=== PATIENT | female | born 1970 | race Caucasian/White ===

== ENCOUNTER 2017-02-20 14:57 | Observation (INO) | payer OTHER ==
[2017-02-20] VITALS (7 sets, daily range): BP systolic 112–120; BP diastolic 62–83; PULSE 71–94; RESP 18–20; TEMP 97.8–98.2; O2SAT 98–100
[~2017-02-20] VITALS: Ht 147.3 cm; Wt 71.4 kg
[~2017-02-20 14:57] MED LIST: HYDR-3533 PO; PROM25SU8 PO; ZOVI800T13 PO
[2017-02-20] MEDS ORDERED: SODIUM CHLOR 0.9% 1000 ML INJ 1,000 ML IV ONE (15:16)
[2017-02-20 15:31] LABS: AUTOMATED NEUTROPHIL # 6.1 TH/MM3 (1.8-7.7); BASOPHIL # 0.4 TH/MM3 (0-0.2); BASOPHIL % 4.4 % (0.0-2.0); EOSINOPHIL % 0.4 % (0.0-4.0); HEMATOCRIT 31.7 % (35.0-46.0); HEMO FLAGS AUTO DIFF; LYMPH % 14.4 % (9.0-44.0); LYMPHOCYTE # 1.2 TH/MM3 (1.0-4.8); MEAN CELL VOLUME 69.8 FL (80.0-100.0); MEAN CORPUSCULAR HEMOGLOBIN 21.7 PG (27.0-34.0); MEAN CORPUSCULAR HGB CONC 31.1 % (32.0-36.0); MONO % 5.1 % (0.0-8.0); NEUT % 75.7 % (16.0-70.0); PLATELET COUNT 289 TH/MM3 (150-450); RED BLOOD COUNT 4.54 MIL/MM3 (4.00-5.30); RED CELL DISTRIBUTION WIDTH 16.7 % (11.6-17.2); WHITE BLOOD COUNT 8.1 TH/MM3 (4.0-11.0)
--- NOTE | 2017-02-20 15:36 | RADRPT ---
EXAM DATE/TIME: 02/20/2017 15:22 [facility] COMPARISON: No previous studies available for comparison. INDICATIONS : Stroke alert. Left hand numbness, right eye vision changes. RADIATION DOSE: 60.68 CTDIvol (mGy) This report was called by Dr. Khalil to do Shaffer at 1532 hrs. MEDICAL HISTORY : Non-responsive. SURGICAL HISTORY : Non-responsive. ENCOUNTER: Initial ACUITY: 1 day PAIN SCALE: Non-responsive LOCATION: Bilateral head TECHNIQUE: Multiple contiguous axial images were obtained of the head. Using automated exposure control and adj ustment of the mA and/or kV according to patient size, radiation dose was kept as low as reasonably a chievable to obtain optimal diagnostic quality images. DICOM format image data is available electro nically for review and comparison. FINDINGS: CEREBRUM: The ventricles are normal for age. No evidence of midline shift, mass lesion, hemorrhage or acute in farction. No extra-axial fluid collections are seen. POSTERIOR FOSSA: The cerebellum and brainstem are intact. The 4th ventricle is midline. The cerebellopontine angle i s unremarkable. EXTRACRANIAL: The visualized portion of the orbits is intact. SKULL: The calvaria is intact. No evidence of skull fracture. CONCLUSION: Negative noncontrast CT. Devang Shaffer MD on February 20, 2017 at 15:31 Board Certified Radiologist. This report was verified electronically.
--- NOTE | 2017-02-20 15:36 | PD ---
HPI Chief Complaint: Stroke Alert Time Seen by Provider: 15:05 Travel History International Travel<30 days: No Contact w/Intl Traveler<30days: No Traveled to known affect area: No History of Present Illness HPI The patient is a 46-year-old female who presents to the emergency department via private vehicle for left-sided numbness and tingling of the arm that began 1 hour prior to arrival. The patient states her first symptom was a bright light that she saw on the right eye, she then developed a mild left- sided headache which has resolved. She then developed numbness and tingling of the face and the left and right side as well as the roof of the mouth and the tongue. The patient then developed some left-sided arm pain with numbness and tingling. She also complained of mild chest discomfort on the left side which has resolved. The patient states she had no numbness or tingling of the lower extremities. She also noted dysarthria and according to the daughter when the patient called the daughter, the daughter states the patient's voice was slurred. The daughter does state that the patient's speech has returned to normal upon arrival. The patient denies any history of hypertension, hyperlipidemia, coronary artery disease, diabetes, tobacco use, TIA, CVA, DVT, or pulmonary embolism. She does have a family history of stroke. The daughter states the patient has been under a great deal of stress recently. Symptoms are moderate, onset was one hour prior to arrival, and his speech has returned to normal on its own, without any intervention. 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) Substance Use: No Allergies-Medications (Allergen,Severity, Reaction): Coded Allergies: No Known Allergies (Verified , 07/09/15) Reported Meds & Prescriptions Reported Meds & Active Scripts Active Lortab 5 mg/325 mg (Hydrocodone/Acetaminophen 5 mg/325 mg) 1 Tab 1 Tab PO Q4H PRN Phenergan (Promethazine HCl) 25 Mg Tab 25 Mg PO Q6H PRN FOR NAUSEA/VOMITING Zovirax (Acyclovir) 800 Mg Tab 800 Mg PO 5 TIMES A DAY Review of Systems Except as stated in HPI: all other systems reviewed are Neg General / Constitutional: No: Fever Eyes: Positive: Visual changes HENT: Positive: Headaches Cardiovascular: Positive: Chest Pain or Discomfort Respiratory: No: Shortness of Breath Gastrointestinal: No: Nausea, Vomiting, Abdominal Pain Musculoskeletal: No: Weakness Neurologic: Positive: Headache, Slurred Speech, Paresthesia, Sensory Disturbance, No: Change in Mentation Physical Exam Narrative GENERAL: Awake, alert, pleasant 46-year-old female who appears her stated age and is in no acute respiratory distress. SKIN: Focused skin assessment warm/dry. HEAD: Atraumatic. Normocephalic. EYES: Pupils equal and round. Pupils are 3 mm bilateral and reactive. EOMs are intact. The patient is able to see fingers correctly out of the left eye to be a distance of 2 feet, however, the right is a was see 1 finger without difficulty, but confuses to fingers and 3 fingers. ENT: No nasal bleeding or discharge. Mucous membranes pink and moist. NECK: Trachea midline. No JVD. CARDIOVASCULAR: Regular rate and rhythm. No murmur appreciated. RESPIRATORY: No accessory muscle use. Clear to auscultation. Breath sounds equal bilaterally. GASTROINTESTINAL: Abdomen soft, non-tender, nondistended. MUSCULOSKELETAL: No obvious deformities. No clubbing. No cyanosis. No edema. NEUROLOGICAL: Awake and alert. No obvious cranial nerve deficits. Motor grossly within normal limits. Normal speech. Alert and oriented 4. No dysarthria noted. Extraocular muscles are intact. Visual christensen appear symmetric, but patient did have decreased visual acuity of the right eye. Drift of the left arm noted against gravity, however, does not fall to the bed. Finger to nose is normal. No drift of the lower extremities or right upper extremity. [id number] is normal. Decreased sensation on the left arm and left aspect of the face. PSYCHIATRIC: Slightly anxious. Insight and judgment appear normal. Data Data Last Documented VS Vital Signs Date Time Temp Pulse Resp B/P (MAP) Pulse Ox O2 Delivery O2 Flow Rate FiO2 02/20/17 15:15 100 Room Air 02/20/17 15:15 98.2 94 18 120/66 (84) Orders Orders Cath For Specimen (02/20/17 15:16) Neuro Checks Q2HX12,Q4H (02/20/17 15:16) Nursing Bedside Swallow Assess .ONCE (02/20/17 15:16) Activity Bed Rest (02/20/17 15:16) Diet Npo (02/20/17 Dinner) Prothrombin Time / Inr (Pt) (02/20/17 15:16) Act Partial Throm Time (Ptt) (02/20/17 15:16) Complete Blood Count With Diff (02/20/17 15:16) Basic Metabolic Panel (Bmp) (02/20/17 15:16) Fibrinogen (02/20/17 15:16) Creatine Kinase (Cpk) (02/20/17 15:16) Troponin I (02/20/17 15:16) Ua Includes Microscopic (02/20/17 15:16) Drug Screen, Random Urine (02/20/17 15:16) Type And Screen (02/20/17 15:16) Ct Brain W/O Iv Contrast(Rout) (02/20/17 ) Electrocardiogram (02/20/17 ) Beta Hcg (Quant/Titer) (02/20/17 15:16) Consult Neurology (02/20/17 15:16) Sodium Chlor 0.9% 1000 Ml Inj (Ns 1000 M (02/20/17 15:16) Blood Glucose (02/20/17 15:16) Ecg Monitoring (02/20/17 15:16) Iv Access Insert/Monitor (02/20/17 15:16) NPO (02/20/17 15:16) Oximetry (02/20/17 15:16) Oxygen Administration (02/20/17 15:16) Resp Oxygen Royal C [place] 1-4 L (02/20/17 15:16) Mri Brain W/O Contrast (02/20/17 ) Mra Brain W/O Contrast (Cow) (02/20/17 ) Aspirin (Aspirin) (02/20/17 15:45) (Hub Use Only)Inp Phy Cons/Ref (02/20/17 ) Labs Laboratory Tests Test 02/20/17 15:20 White Blood Count 8.1 TH/MM3 Red Blood Count 4.54 MIL/MM3 Hemoglobin 9.8 GM/DL Hematocrit 31.7 % Mean Corpuscular Volume 69.8 FL Mean Corpuscular Hemoglobin 21.7 PG Mean Corpuscular Hemoglobin Concent 31.1 % Red Cell Distribution Width 16.7 % Platelet Count 289 TH/MM3 Mean Platelet Volume 9.1 FL Neutrophils (%) (Auto) 75.7 % Lymphocytes (%) (Auto) 14.4 % Monocytes (%) (Auto) 5.1 % Eosinophils (%) (Auto) 0.4 % Basophils (%) (Auto) 4.4 % Neutrophils # (Auto) 6.1 TH/MM3 Lymphocytes # (Auto) 1.2 TH/MM3 Monocytes # (Auto) 0.4 TH/MM3 Eosinophils # (Auto) 0.0 TH/MM3 Basophils # (Auto) 0.4 TH/MM3 CBC Comment AUTO DIFF Differential Comment AUTO DIFF CONFIRMED Prothrombin Time 10.7 SEC Prothromb Time International Ratio 1.0 RATIO Activated Partial Thromboplast Time 27.1 SEC Blood Urea Nitrogen 11 MG/DL Creatinine 0.73 MG/DL Random Glucose 84 MG/DL Calcium Level 8.5 MG/DL Sodium Level 138 MEQ/L Potassium Level 3.5 MEQ/L Chloride Level 107 MEQ/L Carbon Dioxide Level 19.1 MEQ/L Anion Gap 12 MEQ/L Estimat Glomerular Filtration Rate 86 ML/MIN Total Creatine Kinase 90 U/L Troponin I LESS THAN 0.02 NG/ML Human Chorionic Gonadotropin, Quant LESS THAN 1 MIU/ML MDM Medical Screen Exam Complete: Yes Emergency Medical Condition: Yes Medical Record Reviewed: Yes EKG Prior to Arrival: No Differential Diagnosis Differential diagnosis includes complicated migraine, TIA, CVA, intracranial hemorrhage, hypercoagulopathy. Narrative Course IV was established, labs are drawn and sent, and the patient was placed on cardiac telemetry monitoring and continuous pulse oximetry monitoring. EKG was ordered and interpreted. Stat CT the brain was performed and stroke alert was called. The patient's NIH SS is a 3, her dysarthria has resolved according to the daughter, the patient's differential also complicated migraine as she did have photophobia or bright light in the right eye with a left-sided headache which resolved prior to symptoms versus a TIA/CVA. However, I would not administer TPA as patient's symptoms appeared to be improving in regards to the dysarthria and some of the numbness on the face. I had a discussion with the on -call neurologist, Dr. Streeter, who recommends stat MRI. I had a discussion with the radiologist, Dr. Gonsalez, and after discussion was agreed we would cancel CTA perform MRA as the patient is going to have an MRI. CT the brain was negative, therefore, the patient was administered aspirin. Stroke Alert NIHSS NIH Stroke Scale Result: 3 NIHSS Time Completed: 15:25 Procedures Interpretation(s) EKG revealed normal sinus rhythm with a rate 80. RSR prime in V1. Inverted T- wave in lead 3. Last Impressions Head CT 02/20/17 0000 Signed Impressions: Service Date/Time: Monday, February 20, 2017 15:22 - CONCLUSION: Negative noncontrast CT. Devang Shaffer MD Laboratory Tests Test 02/20/17 15:20 White Blood Count 8.1 TH/MM3 Red Blood Count 4.54 MIL/MM3 Hemoglobin 9.8 GM/DL Hematocrit 31.7 % Mean Corpuscular Volume 69.8 FL Mean Corpuscular Hemoglobin 21.7 PG Mean Corpuscular Hemoglobin Concent 31.1 % Red Cell Distribution Width 16.7 % Platelet Count 289 TH/MM3 Mean Platelet Volume 9.1 FL Neutrophils (%) (Auto) 75.7 % Lymphocytes (%) (Auto) 14.4 % Monocytes (%) (Auto) 5.1 % Eosinophils (%) (Auto) 0.4 % Basophils (%) (Auto) 4.4 % Neutrophils # (Auto) 6.1 TH/MM3 Lymphocytes # (Auto) 1.2 TH/MM3 Monocytes # (Auto) 0.4 TH/MM3 Eosinophils # (Auto) 0.0 TH/MM3 Basophils # (Auto) 0.4 TH/MM3 CBC Comment AUTO DIFF Differential Comment AUTO DIFF CONFIRMED Prothrombin Time 10.7 SEC Prothromb Time International Ratio 1.0 RATIO Activated Partial Thromboplast Time 27.1 SEC Blood Urea Nitrogen 11 MG/DL Creatinine 0.73 MG/DL Random Glucose 84 MG/DL Calcium Level 8.5 MG/DL Sodium Level 138 MEQ/L Potassium Level 3.5 MEQ/L Chloride Level 107 MEQ/L Carbon Dioxide Level 19.1 MEQ/L Anion Gap 12 MEQ/L Estimat Glomerular Filtration Rate 86 ML/MIN Total Creatine Kinase 90 U/L Troponin I LESS THAN 0.02 NG/ML Human Chorionic Gonadotropin, Quant LESS THAN 1 MIU/ML Physician Communication Physician Communication I discussed the patient with Dr. Thompson who agrees with admission. Diagnosis Diagnosis: Primary Impression: Paresthesias Admitting Physician Requests: Observation Condition: Stable Alexy Khalil MD Feb 20, 2017 15:36
[2017-02-20 15:38] LABS: CHLORIDE 107 MEQ/L (98-107); POTASSIUM 3.5 MEQ/L (3.5-5.1); SODIUM (NA) 138 MEQ/L (136-145)
[2017-02-20 15:42] LABS: ANION GAP 12 MEQ/L (5-15); BICARBONATE 19.1 MEQ/L (21.0-32.0); BLOOD UREA NITROGEN 11 MG/DL (7-18)
[2017-02-20 15:44] LABS: APTT (PATIENT) 27.1 SEC (24.3-30.1); PROTHROMBIN TIME - PATIENT 10.7 SEC (9.8-11.6)
[2017-02-20 15:45] LABS: GLOMERULAR FILTRATION RATE 86 ML/MIN (>89)
[2017-02-20] MEDS ORDERED: ASPIRIN 325 MG TAB PO ONE (15:45)
[2017-02-20 15:49] LABS: CREATINE KINASE 90 U/L (26-192)
[2017-02-20 15:50] LABS: BETA HCG QUANT LESS THAN 1 MIU/ML (0-5)
[2017-02-20 16:07] LABS: SCAN/DIFF AUTO DIFF CONFIRMED
[2017-02-20] MEDS ORDERED: ACETAMINOPHEN 325 MG TAB PO PRN ×2 (16:45)
[2017-02-20] MEDS ORDERED: SODIUM CHLORIDE 0.9% FLUSH 10 ML FLUSH IV FLUSH PRN (16:45)
[2017-02-20] MEDS ORDERED: NALOXONE HCL 0.4 MG/ML AMP IV PUSH PRN (16:45)
[2017-02-20] MEDS ORDERED: ONDANSETRON HCL 4 MG/2 ML VIAL IVP PRN (16:45)
--- NOTE | 2017-02-20 16:48 | HHI.HP ---
[facility] Rosanna Calles MD Admission Diagnosis paresthesias, rule out TIA/CVA versus complicated migraine Diagnoses: Chief Complaint: Headache, weakness, speech difficulties Travel History International Travel<30 Days: No Contact w/Intl Traveler <30 Da: No Traveled to Known Affected Are: No History of Present Illness The patient is a 46-year-old female with no significant past medical history who is presenting to the hospital with neurological complaints and chest pain. 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 She said that bright light persisted for quite some time. She also had some pain above her left eye and thought her symptoms might be secondary to a migraine. She then developed a discomfort on the left side of her chest that felt sort of like a pressure. She also developed left arm numbness, and numbness around her face, her tongue and her lips. She says she also had a hard time talking. She says she knew what she wanted to say but had a hard time getting out what she wanted to say. She also felt like she was in a fog. She sat down and called her daughter. Her daughter drove her to the emergency department. The patient did endorse some shortness of breath with all of this. She says her symptoms have improved greatly at this time. She still has persistent left arm weakness and numbness on her face, tongue and lips. She says she is talking normally now. She denies any recent fever. She says she is not taking any medications. She has not traveled anywhere recently. Review of Systems Except as stated in HPI: all other systems reviewed are Neg Past Family Social History Past Medical History Scratch fever status post lymph node removal Past Surgical History 4 Tonsillectomy Appendectomy Allergies: Coded Allergies: No Known Allergies (Verified , 07/09/15) Active Ordered Medications Current Medications Medications (Trade) Dose Ordered Sig/Sergey Route Start Time Stop Time Status Last Admin Sodium Chloride 1,000 ml @ 70 mls/hr [id number] ONCE IV 02/20/17 15:16 02/21/17 05:33 02/20/17 15:45 (KCl) 40 meq ONCE ONCE PO 02/20/17 16:45 02/20/17 16:46 UNV Family History Hypertension CVA Social History The patient does not smoke. She has rare alcohol intake. She denies illicit substances. Physical Exam Vital Signs Vital Signs Date Time Temp Pulse Resp B/P (MAP) Pulse Ox O2 Delivery O2 Flow Rate FiO2 02/20/17 16:21 79 18 116/63 (80) 100 Room Air 02/20/17 16:20 100 Room Air 02/20/17 15:35 18 100 Room Air 02/20/17 15:15 100 Room Air 02/20/17 15:15 98.2 94 18 120/66 (84) 100 Physical Exam GENERAL: Resting comfortably in bed. SKIN: Focused skin assessment warm/dry. HEAD: Atraumatic. Normocephalic. EYES: Pupils equal and round. Pupils are 3 mm bilateral and reactive. EOMs are intact. ENT: No nasal bleeding or discharge. Mucous membranes pink and moist. NECK: Trachea midline. No JVD. CARDIOVASCULAR: Regular rate and rhythm. No murmur appreciated. No carotid bruits appreciated. RESPIRATORY: No accessory muscle use. Clear to auscultation. Breath sounds equal bilaterally. GASTROINTESTINAL: Abdomen soft, non-tender, nondistended. MUSCULOSKELETAL: No obvious deformities. No clubbing. No cyanosis. No edema. NEUROLOGICAL: No obvious cranial nerve deficits. Alert and oriented 4. No dysarthria noted. Finger to nose is normal. Difficulty moving tongue to the left side. Decreased sensation on the left arm and left aspect of the face. PSYCHIATRIC: Mood and affect appropriate. Laboratory Laboratory Tests Test 02/20/17 15:20 White Blood Count 8.1 Red Blood Count 4.54 Hemoglobin 9.8 Hematocrit 31.7 Mean Corpuscular Volume 69.8 Mean Corpuscular Hemoglobin 21.7 Mean Corpuscular Hemoglobin Concent 31.1 Red Cell Distribution Width 16.7 Platelet Count 289 Mean Platelet Volume 9.1 Neutrophils (%) (Auto) 75.7 Lymphocytes (%) (Auto) 14.4 Monocytes (%) (Auto) 5.1 Eosinophils (%) (Auto) 0.4 Basophils (%) (Auto) 4.4 Neutrophils # (Auto) 6.1 Lymphocytes # (Auto) 1.2 Monocytes # (Auto) 0.4 Eosinophils # (Auto) 0.0 Basophils # (Auto) 0.4 CBC Comment AUTO DIFF Differential Comment AUTO DIFF CONFIRMED Prothrombin Time 10.7 Prothromb Time International Ratio 1.0 Activated Partial Thromboplast Time 27.1 Blood Urea Nitrogen 11 Creatinine 0.73 Random Glucose 84 Calcium Level 8.5 Sodium Level 138 Potassium Level 3.5 Chloride Level 107 Carbon Dioxide Level 19.1 Anion Gap 12 Estimat Glomerular Filtration Rate 86 Total Creatine Kinase 90 Troponin I LESS THAN 0.02 Human Chorionic Gonadotropin, Quant LESS THAN 1 Result Diagram: 02/20/17 1520 02/20/17 1520 Imaging Last Impressions Head CT 02/20/17 0000 Signed Impressions: Service Date/Time: Monday, February 20, 2017 15:22 - CONCLUSION: Negative noncontrast CT. MD Rody Alejandre VTE Risk Assessment Caprinbriana VTE Risk Assessment: Mod/High Risk (score >= 2) Caprini Risk Assessment Model Point Value = 1 Point Value = 2 Point Value = 3 Point Value = 5 Age 41-60 Minor surgery BMI > 25 kg/m2 Swollen legs Varicose veins or History of unexplained or recurrent spontaneous Oral contraceptives or hormone replacement Sepsis (< 1 month) Serious lung disease, including pneumonia (< 1 month) Abnormal pulmonary function Acute myocardial infarction Congestive heart failure (< 1 month) History of inflammatory bowel disease Medical patient at bed rest Age 61-74 Arthroscopic surgery Major open surgery (> 45 min) Laparoscopic surgery (> 45 min) Malignancy Confined to bed (> 72 hours) Immobilizing plaster cast Central venous access Age >= 75 History of VTE Family history of VTE Factor V Leiden Prothrombin [id number] Lupus anticoagulant Anticardiolipin antibodies Elevated serum homocysteine Heparin-induced thrombocytopenia Other congenital or acquired thrombophilia Stroke (< 1 month) Elective arthroplasty Hip, pelvis, or leg fracture Acute spinal cord injury (< 1 month) Prophylaxis Regimen Total Risk Factor Score Risk Level Prophylaxis Regimen 0-1 Low Early ambulation 2 Moderate Order ONE of the following: *Sequential Compression Device (SCD) *Heparin 5000 units SQ BID 3-4 Higher Order ONE of the following medications: *Heparin 5000 units SQ TID *Enoxaparin/Lovenox 40 mg SQ daily (WT < 150 kg, CrCl > 30 mL/min) *Enoxaparin/Lovenox 30 mg SQ daily (WT < 150 kg, CrCl > 10-29 mL/min) *Enoxaparin/Lovenox 30 mg SQ BID (WT < 150 kg, CrCl > 30 mL/min) AND/OR *Sequential Compression Device (SCD) 5 or more Highest Order ONE of the following medications: *Heparin 5000 units SQ TID (Preferred with Epidurals) *Enoxaparin/Lovenox 40 mg SQ daily (WT < 150 kg, CrCl > 30 mL/min) *Enoxaparin/Lovenox 30 mg SQ daily (WT < 150 kg, CrCl > 10-29 mL/min) *Enoxaparin/Lovenox 30 mg SQ BID (WT < 150 kg, CrCl > 30 mL/min) AND *Sequential Compression Device (SCD) Assessment and Plan Assessment and Plan TIA/ Migraine The patient presents with multiple neurological complaints including facial numbness, dysarthria and left arm numbness and weakness. Her symptoms are currently resolving. CT of the head was unremarkable. She was a stroke alert and neurology was contacted. It was decided not to give the patient TPA as her symptoms were improving and thought to be consistent with a migraine variant. She received 325 mg of ASA in the ED. - MRI/ MRA per neurology. - Check carotid duplex and echocardiogram. - Neuro checks. - Bedrest and keep IV fluids going at 75 ml/hour. - Permissive hypertension. - Keep the patient nothing by mouth. - PT/ OT/ ST. - Follow up with neurology. - Check hemoglobin A1c and lipid profile. - ASA 81 mg daily. Chest pain The patient described chest pressure which is gone. She also had some associated shortness of breath. EKG without obvious acute ischemia. Initial troponin negative. - telemetry. - trend trops and EKGs. - pain control, oxygen and nebs as needed. - CXR ordered. Anemia MCV is low, consistent with iron deficiency. - check iron studies, B12 and folate. - Hemoccult requested. - follow CBC and transfuse as needed. PPx: Lovenox Code Status Full Discussed Condition With Dr. Khalil, pt Devang Thompson DO Feb 20, 2017 16:48
[2017-02-20] MEDS: POTASSIUM CHLORIDE 20 MEQ CONTROLLED RELEASE TAB PO ONE (17:00)
--- NOTE | 2017-02-20 17:19 | RADRPT ---
EXAM DATE/TIME: 02/20/2017 17:02 [facility] COMPARISON: No previous studies available for comparison. INDICATIONS : Left sided weakness. Slurred speech. MEDICAL HISTORY : None. SURGICAL HISTORY : Appendectomy. Tonsillectomy. Fusion, cervical. ENCOUNTER: Initial ACUITY: 1 day PAIN SCORE: 0/10 LOCATION: cranial Please note a normal MRA of the brain does not entirely exclude the possibility of a small aneurysm, nor the possibility of distal intracranial vessel disease. TECHNIQUE: 3D time of flight MRA was performed. Source images, multiplanar STS MIP, and 3D volume MIP reconstru ctions were reviewed. FINDINGS: There is excellent visualization of the major intracranial arteries out to the second-order branch ve ssels. There is no evidence for aneurysm, vessel truncation or stenosis, and no evidence for vascula r malformation. Flow is seen in the anterior communicating artery and both PCOM. CONCLUSION: Normal MRA of the [place]. Robbi Harris MD on February 20, 2017 at 17:17 Board Certified Radiologist. This report was verified electronically.
--- NOTE | 2017-02-20 17:20 | RADRPT ---
EXAM DATE/TIME: 02/20/2017 17:02 [facility] COMPARISON: CT BRAIN W/O CONTRAST, February 20, 2017, 15:22. INDICATIONS : Left sided weakness. Slurred speech. MEDICAL HISTORY : None. SURGICAL HISTORY : Fusion, cervical. Appendectomy. Tonsillectomy. ENCOUNTER: Initial ACUITY: 1 day PAIN SCORE: 0/10 LOCATION: cranial TECHNIQUE: Multiplanar, multisequence MRI of the brain was performed without contrast. FINDINGS: CEREBRUM: The ventricles are normal for age. No evidence of midline shift, mass lesion, hemorrhage or acute in farction. No extraaxial fluid collections are seen. The pituitary gland and suprasellar cistern are normal in configuration. WHITE MATTER: No significant signal abnormalities are seen in the white matter. POSTERIOR FOSSA: The cerebellum and brainstem are intact. The 4th ventricle is midline. The cerebellopontine angle is unremarkable. The cerebellar tonsils are normal in position. DIFFUSION IMAGING: No focal areas of restricted diffusion are seen. No evidence of acute infarction. EXTRACRANIAL: The visualized portions of the orbits and paranasal sinuses are unremarkable. CONCLUSION: Negative exam with no evidence of hemorrhage or acute infarction. Devang Shaffer MD on February 20, 2017 at 17:18 Board Certified Radiologist. This report was verified electronically.
--- NOTE | 2017-02-20 17:32 | RADRPT ---
EXAM DATE/TIME: 02/20/2017 17:22 [facility] COMPARISON: No previous studies available for comparison. INDICATIONS : Left upper chest pain, Pre admit for stoke alert MEDICAL HISTORY : None. SURGICAL HISTORY : None. ENCOUNTER: Subsequent ACUITY: 1 day PAIN SCORE: 3/10 LOCATION: Left upper chest FINDINGS: A single view of the chest demonstrates the lungs to be symmetrically aerated without evidence of mas s, infiltrate or effusion. The cardiomediastinal contours are unremarkable. Osseous structures are intact. CONCLUSION: The lungs are clear. Robbi Harris MD on February 20, 2017 at 17:30 Board Certified Radiologist. This report was verified electronically.
--- NOTE | 2017-02-20 17:50 | RADRPT ---
EXAM DATE/TIME: 02/20/2017 17:30 [place] COMPARISON: No previous studies available for comparison. INDICATIONS : Transient ischemic attack. Paresthesia. MEDICAL HISTORY : Brain lesion. SURGICAL HISTORY : Tonsillectomy. Appendectomy. section. Lymph node surgery. ENCOUNTER: Initial ACUITY: 1 day PAIN SCORE: 0/10 LOCATION: Bilateral neck PEAK SYSTOLIC VELOCITIES (cm/sec): ICA/CCA RATIO: Right: 0.9 Left: 0.8 ICA: Right: 86 Left: 94 CCA: Right: 100 Left: 116 ECA: Right: 66 Left: 87 VERTEBRAL: Right: 57 antegrade Left: 63 antegrade Elevated flow velocities and ICA/CCA ratios have been found to correlate with increased degrees of vessel stenosis, calculated as percentage of diameter relative to a normal segment of distal ICA/CCA FINDINGS: RIGHT CAROTID: No significant stenosis is visualized. The waveforms are within normal limits. LEFT CAROTID: No significant stenosis is visualized. The waveforms are within normal limits. VERTEBRAL ARTERIES: Antegrade flow is seen in both vertebral arteries. MISCELLANEOUS: None. CONCLUSION: Normal carotid ultrasound. Robbi Harris MD on February 20, 2017 at 17:47 Board Certified Radiologist. This report was verified electronically.
[2017-02-20 18:31] LABS: TRANSFERRIN IRON PROFILE 240 MG/DL (200-360)
[2017-02-20 18:32] LABS: HDL CHOLESTEROL 42.9 MG/DL (40.0-60.0); LDL CHOLESTEROL 84 MG/DL (0-99)
[2017-02-20 18:56] LABS: FERRITIN 4 NG/ML (8-252)
[2017-02-20] MEDS: DOCUSATE SODIUM 50 MG/SENNA 8.6 MG TAB PO SCH (21:00)
[2017-02-20] MEDS: SODIUM CHLORIDE 0.9% FLUSH 10 ML FLUSH IV FLUSH SCH (21:00)
[2017-02-20] MEDS: SODIUM CHLOR 0.9% 1000 ML INJ 1,000 ML IV SCH (21:20)
[2017-02-20] MEDS: ENOXAPARIN SODIUM 30 MG/0.3 ML SYRINGE SQ SCH (21:23)
[2017-02-21] VITALS: BP 114/65; PULSE 74; RESP 20; TEMP 97.8; O2SAT 97
[2017-02-21] MEDS: SODIUM CHLOR 0.9% 1000 ML INJ 1,000 ML IV SCH (01:51)
[2017-02-21 04:59] LABS: BLOOD, URINE SMALL (NEG); GLUCOSE,URINE NEG (NEG); KETONE, URINE NEG (NEG); NITRITE,URINE NEG (NEG)
[2017-02-21 05:04] LABS: URINE COLOR YELLOW (YELLW/STRAW)
[2017-02-21 05:05] LABS: COMMENT (UR) CULT NOT INDICATED; CULTURE IF INDICATED CULT NOT INDICATED; RBC, URINE 0-3 /hpf (0-3); SQUAMOUS EPITHELIAL CELL URINE 0-5 /hpf (0-5); WBC, URINE 0-2 /hpf (0-5)
[2017-02-21 05:32] VITALS: BP 117/75; PULSE 71; RESP 20; TEMP 96.9; O2SAT 98
[2017-02-21 07:53] LABS: AUTOMATED NEUTROPHIL # 2.9 TH/MM3 (1.8-7.7); BASOPHIL % 0.3 % (0.0-2.0); EOSINOPHIL # 0.1 TH/MM3 (0-0.4); EOSINOPHIL % 1.4 % (0.0-4.0); HEMATOCRIT 29.2 % (35.0-46.0); HEMO FLAGS AUTO DIFF; LYMPH % 31.1 % (9.0-44.0); LYMPHOCYTE # 1.5 TH/MM3 (1.0-4.8); MEAN CELL VOLUME 70.5 FL (80.0-100.0); MEAN CORPUSCULAR HEMOGLOBIN 22.3 PG (27.0-34.0); MEAN CORPUSCULAR HGB CONC 31.7 % (32.0-36.0); MONO % 7.4 % (0.0-8.0); NEUT % 59.8 % (16.0-70.0); PLATELET COUNT 257 TH/MM3 (150-450); RED BLOOD COUNT 4.14 MIL/MM3 (4.00-5.30); RED CELL DISTRIBUTION WIDTH 17.2 % (11.6-17.2); WHITE BLOOD COUNT 4.9 TH/MM3 (4.0-11.0)
[2017-02-21 08:00] VITALS: BP 108/61; PULSE 68; RESP 16; TEMP 97.3; O2SAT 98
[2017-02-21 08:01] LABS: CHLORIDE 111 MEQ/L (98-107); POTASSIUM 3.8 MEQ/L (3.5-5.1); SODIUM (NA) 141 MEQ/L (136-145)
[2017-02-21 08:05] LABS: ANION GAP 10 MEQ/L (5-15); BICARBONATE 19.8 MEQ/L (21.0-32.0); BLOOD UREA NITROGEN 10 MG/DL (7-18)
[2017-02-21 08:08] LABS: ALT (GPT) 21 U/L (10-53); AST (GOT) 8 U/L (15-37); GLOMERULAR FILTRATION RATE 102 ML/MIN (>89)
[2017-02-21 08:09] LABS: TOTAL BILIRUBIN ADULT 0.5 MG/DL (0.2-1.0)
[2017-02-21 08:11] LABS: ALKALINE PHOSPHATASE 71 U/L (45-117)
[2017-02-21 08:24] LABS: SCAN/DIFF AUTO DIFF CONFIRMED
[2017-02-21 08:31] VITALS: O2SAT 98
[2017-02-21] MEDS: DOCUSATE SODIUM 50 MG/SENNA 8.6 MG TAB PO SCH (09:00)
[2017-02-21] MEDS: SODIUM CHLORIDE 0.9% FLUSH 10 ML FLUSH IV FLUSH SCH (09:00)
[2017-02-21 09:21] LABS: HEMOGLOBIN A1a 1.4 %; HEMOGLOBIN A1b 1.6 %; HEMOGLOBIN Ao 86.1 %; HEMOGLOBIN LA1C 1.6 %; HEMOGLOBIN P3 3.4 %
[2017-02-21] MEDS ORDERED: INFLUENZA VIRUS VACCINE (QUADRIVALENT) 0.5 ML SYR IM ONE (10:00)
[2017-02-21] MEDS ORDERED: PNEUMOCOCCAL POLYVALENT INJ 25 MCG/0.5 ML SYR IM ONE (10:00)
--- NOTE | 2017-02-21 11:53 | MB ---
cc: KELLEE FAULKNER M.D. DATE OF CONSULTATION: 02/21/2017 REASON FOR CONSULTATION: Possible stroke versus TIA, versus complicated migraine. 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 She was checking on the rooms, making sure things were done right when all of a sudden she had like a bright light occur in her right eye, then subsequently some pain in the left eye. She went back to the office. Her supervisor [employer] was talking with her and apparently she had some trouble expressing herself. She then noticed some numbness in the left arm, face and tongue, came to the ER. Improved greatly by the time she arrived. She still states that her finger tips of the left hand still feels somewhat numb but back to baseline speech-paiz. There is no overt weakness. She denies any loss of consciousness or awareness. She, at that time, had some chest pain as well. PAST MEDICAL HISTORY: Cat scratch fever, lymph node removal. PAST SURGICAL HISTORY , tonsillectomy, appendectomy. ALLERGIES None reported. MEDICATIONS AT HOME None. FAMILY HISTORY Hypertension, stroke. SOCIAL HISTORY Does not smoke use, rarely drinks, does not use any illicit drugs. PHYSICAL EXAMINATION: On exam her vitals, temperature is 97.3, pulse 68, respiratory rate 16, blood pressure 108/61 sating at 98% on room air. Neck: Her neck is supple. No appreciable bruits. Heart: Regular. Lungs: Clear. Neurologic: She is awake and alert. She is oriented and fluent. Pupils are reactive. Visual christensen are full to confrontation. Face symmetrical. Tongue midline. Motor-paiz, she still exhibits mild downward drift. On cerebellar testing, she is normal. Wlqrvn-ehgr-nvuahe, DTRs are 1 to 2+. Toes, withdraws. There is no leg lag. Sensory, otherwise unremarkable. LABORATORY DATA: Reviewed. Hemoglobin is 9.3, hematocrit 29.2, platelet count 257,000. RDW 17.2. MCV is 70.5. Coag panel is unremarkable. Chemistries: TIBC is 336. Ferritin 4. Iron is 24. HDL 42.9, LDL 84, cholesterol 142, triglycerides 76, B12 406, TSH 0.936, albumin is 3, calcium was 7.8, Tox screen was negative. Urine was small, blood otherwise unremarkable. IMAGING STUDIES Brain MRI without any acute findings. Carotid ultrasound, no stenosis. MRA [place] of [place], no intracranial disease seen. IMPRESSION 1. The patient is a 46 year-old woman without any significant medical history, possible TIA. 2. She is anemic, looks like iron insufficiency. 3. Possible complicated migraine. RECOMMENDATIONS: Recommend getting the echo results. Start her on a baby aspirin daily. Get her out of bed with physical therapy. Outpatient Holter monitor and likely if her workup is negative, I will have her follow up with me in the office in two weeks. We may go ahead and order a hypercoagulable panel as well. If she is stable from my perspective she can be discharged home today. I told her to refrain from work for the next few days and schedule follow up with Dr. Calles, her primary care as well as with my office. MD HEATHER Crandall/ANANDA /10:21 AM /11:39 AM
[2017-02-21 12:00] VITALS: BP 107/56; PULSE 77; RESP 15; TEMP 98.1; O2SAT 99
[2017-02-21 16:00] VITALS: BP 98/67; PULSE 76; RESP 16; TEMP 97.8; O2SAT 99
[2017-02-21] MEDS: ENOXAPARIN SODIUM 30 MG/0.3 ML SYRINGE SQ SCH (17:00)
[2017-02-21] MEDS ORDERED: ASPI-437 PO (18:10)
--- NOTE | 2017-02-21 18:10 | HHI.DCPOC ---
Discharge Care Plan Diagnosis: (1) Paresthesias Goals to Promote Your Health * To prevent worsening of your condition and complications * To maintain your health at the optimal level Directions to Meet Your Goals Take your medications as prescribed Follow your dietary instruction Follow activity as directed Keep your appointments as scheduled Take your immunizations and boosters as scheduled If your symptoms worsen call your PCP, if no PCP go to Urgent Care Center or Emergency Room Smoking is Dangerous to Your Health. Avoid second hand smoke Call the 24-hour hour crisis hotline for domestic abuse at Lyle Cisneros Feb 21, 2017 18:10
--- NOTE | 2017-02-21 18:15 | ECHRPT ---
Indication: CVA/TIA CONCLUSIONS Normal left ventricular size. Wall thickness is normal. The left ventricular systolic function is low normal with an estimated ejection fraction in the rang e of 50- 55%. Trace mitral valve regurgitation. There is trace tricuspid valve regurgitation. BP: / HR: Rhythm: Sinus MEASUREMENTS (Male / Female) Normal Values Technical Quality:Good 2D ECHO LV Diastolic Diameter PLAX 4.3 cm 4.2 - 5.9 / 3.9 - 5.3 cm LV Systolic Diameter PLAX 3.0 cm IVS Diastolic Thickness 1.0 cm 0.6 - 1.0 / 0.6 - 0.9 cm LVPW Diastolic Thickness 0.7 cm 0.6 - 1.0 / 0.6 - 0.9 cm LV Relative Wall Thickness 0.4 LA Systolic Diameter LX 3.4 cm 3.0 - 4.0 / 2.7 - 3.8 cm M-MODE Aortic Root Diameter MM 2.5 cm AV Cusp Separation MM 1.7 cm DOPPLER MR Peak Velocity 451.0 cm/s MR Peak Gradient 81.4 mmHg Mitral E Point Velocity 90.8 cm/s Mitral A Point Velocity 59.2 cm/s Mitral E to A Ratio 1.5 LV E' Lateral Velocity 13.9 cm/s Mitral E to LV E' Lateral Ratio 6.5 LV E' Septal Velocity 10.7 cm/s Mitral E to LV E' Septal Ratio 8.5 TR Peak Velocity 217.0 cm/s TR Peak Gradient 18.8 mmHg FINDINGS LEFT VENTRICLE Normal left ventricular size. Wall thickness is normal. The left ventricular systolic function is low normal with an estimated ejection fraction in the rang e of 50- 55%. RIGHT VENTRICLE Normal right ventricular size and systolic function. LEFT ATRIUM The left atrial size is normal. RIGHT ATRIUM The right atrial size is normal. AORTA The aortic root and proximal ascending aorta are normal in size on limited imaging. MITRAL VALVE Trace mitral valve regurgitation. AORTIC VALVE Trileaflet aortic valve. No aortic valve stenosis or regurgitation. TRICUSPID VALVE There is trace tricuspid valve regurgitation. PULMONARY VALVE The pulmonary valve is not well visualized. VESSELS The inferior vena cava is normal in size. PERICARDIUM No pericardial effusion. Jaya Maciel MD (Electronically Signed) Final Date:21 February 2017 18:14
--- NOTE | 2017-02-21 18:16 | HHI.DS ---
cc: Alfreda Streeter MD Discharge Summary Admission Date Feb 20, 2017 at 16:23 Discharge Date: Feb 21, 2017 Admitting Diagnosis paresthesias, rule out TIA/CVA versus complicated migraine (1) TIA (transient ischemic attack) ICD Code: G45.9 - Transient cerebral ischemic attack, unspecified Diagnosis: Principal (2) Paresthesias ICD Code: R20.2 - Paresthesia of skin Diagnosis: Principal Status: Acute Procedures Awaiting echocardiogram Outpatient Holter monitor Brief History - From Admission The patient is a 46-year-old female with no significant past medical history who is presenting to the hospital with neurological complaints and chest pain. 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 She said that bright light persisted for quite some time. She also had some pain above her left eye and thought her symptoms might be secondary to a migraine. She then developed a discomfort on the left side of her chest that felt sort of like a pressure. She also developed left arm numbness, and numbness around her face, her tongue and her lips. She says she also had a hard time talking. She says she knew what she wanted to say but had a hard time getting out what she wanted to say. She also felt like she was in a fog. She sat down and called her daughter. Her daughter drove her to the emergency department. The patient did endorse some shortness of breath with all of this. She says her symptoms have improved greatly at this time. She still has persistent left arm weakness and numbness on her face, tongue and lips. She says she is talking normally now. She denies any recent fever. She says she is not taking any medications. She has not traveled anywhere recently. CBC/BMP: 02/21/17 0716 02/21/17 0716 Significant Findings Laboratory Tests Test 02/20/17 15:20 02/20/17 21:02 02/21/17 03:40 02/21/17 04:50 Hemoglobin 9.8 GM/DL (11.6-15.3) Hematocrit 31.7 % (35.0-46.0) Mean Corpuscular Volume 69.8 FL (80.0-100.0) Mean Corpuscular Hemoglobin 21.7 PG (27.0-34.0) Mean Corpuscular Hemoglobin Concent 31.1 % (32.0-36.0) Neutrophils (%) (Auto) 75.7 % (16.0-70.0) Basophils (%) (Auto) 4.4 % (0.0-2.0) Basophils # (Auto) 0.4 TH/MM3 (0-0.2) Carbon Dioxide Level 19.1 MEQ/L (21.0-32.0) Estimat Glomerular Filtration Rate 86 ML/MIN (>89) Iron Level 24 MCG/DL (50-170) Percent Iron Saturation 7.1 % (20-50) Ferritin 4 NG/ML (8-252) Troponin I LESS THAN 0.02 NG/ML LESS THAN 0.02 NG/ML LESS THAN 0.02 NG/ML Urine Occult Blood SMALL (NEG) Test 02/21/17 07:16 Hemoglobin 9.3 GM/DL (11.6-15.3) Hematocrit 29.2 % (35.0-46.0) Mean Corpuscular Volume 70.5 FL (80.0-100.0) Mean Corpuscular Hemoglobin 22.3 PG (27.0-34.0) Mean Corpuscular Hemoglobin Concent 31.7 % (32.0-36.0) Albumin 3.0 GM/DL (3.4-5.0) Calcium Level 7.8 MG/DL (8.5-10.1) Aspartate Amino Transf (AST/SGOT) 8 U/L (15-37) Chloride Level 111 MEQ/L (98-107) Carbon Dioxide Level 19.8 MEQ/L (21.0-32.0) Imaging Last Impressions Head Magnetic Resonance Angiography 02/20/17 0000 Signed Impressions: Service Date/Time: Monday, February 20, 2017 17:02 - CONCLUSION: Normal MRA of the [place] of [place]. Robbi Harris MD Head CT 02/20/17 0000 Signed Impressions: Service Date/Time: Monday, February 20, 2017 15:22 - CONCLUSION: Negative noncontrast CT. Devang Shaffer MD Chest X-Ray 02/20/17 0000 Signed Impressions: Service Date/Time: Monday, February 20, 2017 17:22 - CONCLUSION: The lungs are clear. Robbi Harris MD Carotid Artery Ultrasound 02/20/17 0000 Signed Impressions: Service Date/Time: Monday, February 20, 2017 17:30 - CONCLUSION: Normal carotid ultrasound. Robbi Harris MD Brain MRI 02/20/17 0000 Signed Impressions: Service Date/Time: Monday, February 20, 2017 17:02 - CONCLUSION: Negative exam with no evidence of hemorrhage or acute infarction. Devang Shaffer MD Hospital Course 46-year-old female who originally presented to hospital because of neurological complaints. 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 She has some pain above her left thigh she thought was related to migraine. Patient developed a left arm numbness, numbness around her face, her tongue and lips. He had difficulty in speaking. He had dysphasia. Patient came to emergency department and stroke alert was called. Patient had full neurological workup with CT scan of the brain, MRI of the brain, MRA of the brain, carotid ultrasound which were unremarkable. Laboratory studies were performed which did not indicate any reason for her symptoms. LDL is 84. Patient is doing well this time. Patient had evaluation done by PT/OT/ST which were unremarkable. All her symptoms have resolved. Neurology evaluated patient and recommended patient be discharged home on baby aspirin with outpatient Holter monitor and possible hypercoagulability panel. Patient clinically stable this time. Awaiting echocardiogram report prior to discharge as requested by neurologist. Will plan discharge accordingly. Pt Condition on Discharge: Stable Discharge Disposition: Discharge Home Discharge Time: > 30 minutes Discharge Instructions DIET: Follow Instructions for: As Tolerated, No Restrictions Activities you can perform: Regular-No Restrictions Follow up Referrals: Neurology - 2 Weeks with Alfreda Streeter MD PCP Follow-up - 1 Week New Medications: Aspirin (Adult Low Dose Aspirin EC) 81 Mg Tablet. 81 MG PO DAILY for stroke prevention, #30 TAB Continued Medications: Acyclovir (Zovirax) 800 Mg Tab 800 MG PO 5 TIMES A DAY, #35 TAB Hydrocodone/Acetaminophen 5 mg/325 mg (Lortab 5 mg/325 mg) 1 Tab 1 TAB PO Q4H PRN for PAIN, #30 TAB Promethazine Hcl (Promethazine Hcl) 25 Mg Tab 25 MG PO Q6H PRN for nausea, #30 TAB FOR NAUSEA/VOMITING Lyle Cisneros Feb 21, 2017 18:16
--- NOTE | 2017-02-21 20:41 | EKG ---
Date Performed: 02/21/2017 Time Performed: 03:29:58 PTAGE: 46 years EKG: Sinus rhythm NORMAL ECG PREVIOUS TRACING : 02/20/2017 20.59 DOCTOR: Jaya Maciel Interpretating Date/Time 02/21/2017 20:38:49
--- NOTE | 2017-02-21 20:46 | EKG ---
Date Performed: 02/20/2017 Time Performed: 20:59:49 PTAGE: 46 years EKG: Sinus rhythm TYPE 3 BRUGADA PATTERN (NON-DIAGNOSTIC) BORDERLINE ECG PREVIOUS TRACING : 01/11/2008 07.58 DOCTOR: Jaya Maciel Interpretating Date/Time 02/21/2017 20:41:24
--- NOTE | 2017-02-21 20:52 | EKG ---
Date Performed: 02/20/2017 Time Performed: 15:08:17 PTAGE: 46 years EKG: Sinus rhythm TYPE 3 BRUGADA PATTERN ? BORDERLINE ECG INTERPRETATION BASED ON A DEFAULT AGE OF 40 YEARS NO PREVIOUS TRACING DOCTOR: Jaya Maciel Interpretating Date/Time 02/21/2017 20:47:01
== END 2017-02-21 19:15 | disposition home or self-care (01) ==
LOC: PHED 14:57 → PHEDA 16:23 → PH3A 17:47
PROVIDERS: ADMIT Hospitalist; ATTEND Hospitalist
DX: G45.9 Transient cerebral ischemic attack, unspecified (principal); R20.2 Paresthesia of skin; M79.602 Pain in left arm; R47.1 Dysarthria and anarthria; R47.81 Slurred speech; R06.02 Shortness of breath; I10 Essential (primary) hypertension; R07.89 Other chest pain; D50.9 Iron deficiency anemia, unspecified; H57.12 Ocular pain, left eye; R94.31 Abnormal electrocardiogram [ECG] [EKG]; Z23 Encounter for immunization; R51 Headache; Z86.011 Personal history of benign neoplasm of the brain
CPT/HCPCS: 70450; 70544; 70551; 71010; 80048; 80053; 80061; 80307; 81001; 82550; 82607; 82728; 82746; 82948; 83036; 83540; 83550; 83735; 84443; 84484; 84702; 85025; 85384; 85610; 85730; 86850; 86900; 86901; 90471; 90686; 90732; 92610; 93005; 93306; 93880; 96360; 96361; 96372; 97162; 97166; 99285; G0378; G8987; G8988; G8989; G8996; G8997; G8998; J1650; J7030; G0008; G0009; Q2038